=== PATIENT | female | born 1940 | race Caucasian/White ===

== ENCOUNTER 2018-10-07 05:36 | Day surgery (SDC) | payer MEDICARE ==
[~2018-10-07] VITALS: Ht 162.6 cm; Wt 62.6 kg
[~2018-10-07 05:36] MED LIST: CYAN250010 PO; LOSA50TA20 PO; MULT-1116 PO
[2018-10-07] MEDS ORDERED: LACTATED RINGERS 1,000 ML IV SCH (06:30)
[2018-10-07] MEDS ORDERED: FENTANYL CITRATE/PF 50MCG/ML 2ML VIAL ONE (07:21)
[2018-10-07] MEDS ORDERED: PROPOFOL 200MG/20ML VIAL IV ONE (07:22)
[2018-10-07] MEDS ORDERED: CEFAZOLIN SODIUM 1000MG/VIAL ONE (07:22)
[2018-10-07] MEDS ORDERED: LIDOCAINE HCL/PF 1% 10 MG/ML 5ML VIAL ONE (07:22)
[2018-10-07] MEDS ORDERED: ONDANSETRON HCL 4MG/2ML INJ ONE (07:22)
[2018-10-07] MEDS ORDERED: BUPIVACAINE HCL 0.5% (5MG/ML) 50ML ONE (07:25)
[2018-10-07] MEDS ORDERED: SKIN ADHESIVE 0.7 GM EA TOP ONE (07:25)
[2018-10-07] MEDS ORDERED: METOCLOPRAMIDE HCL 10MG/2ML VIAL IV PRN (08:45)
[2018-10-07] MEDS ORDERED: MEPERIDINE HCL/PF 25MG/ML CPJ IV PRN (08:45)
[2018-10-07] MEDS ORDERED: HYDROMORPHONE HCL/PF 2MG/ML CPJ IV PRN (08:45)
== END 2018-10-07 10:20 | disposition home or self-care (01) ==
LOC: OR 05:36
PROVIDERS: ATTEND Surgery
DX: C50.911 Malignant neoplasm of unspecified site of right female breast (principal); I10 Essential (primary) hypertension; Z85.038 Personal history of other malignant neoplasm of large intestine
CPT/HCPCS: 19301; 88309; 93005; G0168; J0690; J2405; J2704; J3010; J3490